=== PATIENT | male | born 1950 | race Caucasian/White ===

== ENCOUNTER 2020-01-10 13:41 | Emergency (ER) | payer MEDICARE, OTHER, SELFPAY ==
[2020-01-10 13:43] VITALS: BP 133/80; PULSE 74; RESP 18; TEMP 37.2; O2SAT 99; BMI 23.2
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
[2020-01-10 15:39] VITALS: BP 129/84; PULSE 73; RESP 18; O2SAT 100
== END 2020-01-10 15:40 | disposition home or self-care (01) ==
LOC: ED 15:27
PROVIDERS: Emergency Provider Emergency Medicine
DX: M54.2 Cervicalgia (principal); V43.52XA Car driver injured in collision with other type car in traffic accident, initial encounter; Y92.410 Unspecified street and highway as the place of occurrence of the external cause; E78.00 Pure hypercholesterolemia, unspecified; Z87.891 Personal history of nicotine dependence
CPT/HCPCS: 70450; 71045; 72125; 99285